=== PATIENT | female | born 1965 | race Caucasian/White ===

== ENCOUNTER 2016-09-21 07:44 | Day surgery (SDC) | payer BC ==
[~2016-09-21 07:44] MED LIST: FENTANYL 250 MCG/5 ML AMP IV PRN; IV START KIT ONE; LACTATED RINGERS 1,000 ML IV SCH; MIDAZOLAM HCL 5 MG/5 ML VIAL IV PRN
[2016-09-21] MEDS ORDERED: MIDAZOLAM HCL 5 MG/5 ML VIAL ONE (07:47)
[2016-09-21] MEDS ORDERED: FENTANYL 5 ML ONE (07:48)
--- NOTE | 2016-09-23 10:22 | SURGPATH ---
[facility] [address] [place] [id number] Patient Name: MONSE ZULETA MR#: [id number] : 1965 Gender: F Specimen #: [id number] Collected: 09/21/2016 Received: 09/22/2016 Reported: 09/23/2016 Submitting Phys: DEANDRE MOURA Copy To Phys: [facility] Clinical History / Pre-Operative Diagnosis: Screening colonoscopy Specimen Source / Surgical Procedure Performed: Mid ascending polyp Interpretation: MID ASCENDING COLON POLYP, POLYPECTOMY: - TUBULAR ADENOMA Electronically Signed Out Jonathan Harrell M.D. Gross Description: The specimen is received in a formalin filled container labeled with the patient's name and "mid ascending polyp". A single juan biopsy is 0.4 x 0.3 x 0.2 cm. Totally embedded in one cassette. Anu Mckeon Microscopic Description: The sections show colonic mucosa exhibiting adenomatous change with a tubular architectural pattern. The changes are characterized by nuclear stratification and hyperchromasia with increased mitotic activity. High-grade dysplasia is not identified. 1: 96179 D12.2
== END 2016-09-21 10:21 | disposition home or self-care (01) ==
LOC: SDC 07:44
PROVIDERS: ATTEND Internal Medicine Gastroenterology
PROC: 0DBL8ZX Excision of Transverse Colon, Via Natural or Artificial Opening Endoscopic, Diagnostic (ICD-10-PCS; principal; 2016-09-21)
DX: Z12.11 Encounter for screening for malignant neoplasm of colon (principal); D12.2 Benign neoplasm of ascending colon; K57.30 Diverticulosis of large intestine without perforation or abscess without bleeding